=== PATIENT | female | born 1995 | race Hispanic/Latino ===

== ENCOUNTER 2023-09-10 10:51 | Inpatient (IN) | payer MEDICAID ==
[~2023-09-10] VITALS: Ht 157.5 cm; Wt 81.6 kg
[2023-09-10 12:52] LABS: APPEARANCE,URINE CLEAR (CLEAR); BILIRUBIN,URINE NEGATIVE (NEGATIVE); COLOR,URINE LIGHT-YELLOW (YELLOW); GLUCOSE, URINE (UA) NEGATIVE (NEGATIVE); KETONES,URINE NEGATIVE (NEGATIVE); LEUKOCYTE ESTERASE ,URINE NEGATIVE Leu/uL (NEGATIVE); NITRATE,URINE NEGATIVE (NEGATIVE); OCCULT BLOOD,URINE LARGE (NEGATIVE); PROTEIN,URINE 10 mg/dL (NEGATIVE); UROBILINOGEN,URINE 0.2 mg/dL (0.2-1.0)
[2023-09-10 12:58] LABS: AMPHET/METH SCREEN,URINE NEGATIVE (NEGATIVE); BARBITURATE SCREEN, URINE NEGATIVE (NEGATIVE); BENZODIAZEPINES SCREEN,URINE NEGATIVE (NEGATIVE); CANNABINOID SCREEN,URINE NEGATIVE (NEGATIVE); COCAINE SCREEN,URINE NEGATIVE (NEGATIVE); OPIATE SCREEN,URINE NEGATIVE (NEGATIVE); PHENCYCLIDINE SCREEN,URINE NEGATIVE (NEGATIVE)
[2023-09-10 13:00] LABS: ADD UA MICROSCOPIC YES
[2023-09-10] MEDS ORDERED: OXYTOCIN-LR 30 UNITS/500ML 500 ML IV SCH (13:00)
[2023-09-10 13:02] LABS: BACTERIA,URINE RARE /HPF (None Seen); MUCUS,URINE RARE LPF (None Seen); RBC,URINE TNTC /HPF (0-1); SQUAMOUS EPITHELIAL CELL,UR MOD /HPF (0-2)
[2023-09-10 13:03] LABS: HEMATOCRIT 39.7 % (36-48); MEAN CORPUSCULAR HEMOGLOBIN 29.3 pg (27.0-33.0); MEAN CORPUSCULAR HGB CONC 33.8 g/dL (32.0-36.0); MEAN CORPUSCULAR VOLUME 86.9 fL (79-99); RED BLOOD CELL COUNT(AUTO) 4.57 MIL/uL (4.00-5.50); RED CELL DISTRIBUTION WIDTH 12.9 % (11.0-15.5); WHITE BLOOD COUNT (AUTO) 9.9 K/uL (4.8-10.8)
[2023-09-10] MEDS: LACTATED RINGERS 1000ML 1,000 ML IV PRN ×2 (17:09→23:52)
[2023-09-10] MEDS ORDERED: DINOPROSTONE 10 MG VAGINAL SUPP EC ONE (19:00)
[2023-09-11] MEDS: LACTATED RINGERS 1000ML 1,000 ML IV PRN ×3 (07:34→14:36)
[2023-09-11] MEDS ORDERED: MEPERIDINE-PF 50 MG/ML SYG IVP PRN (09:00)
[2023-09-11] MEDS ORDERED: ROPIVACAINE 0.2% 100ML VIAL 100 ML EP SCH (09:00)
[2023-09-11] MEDS ORDERED: PROMETHAZINE HCL 25 MG/ML 1ML AMPULE IM PRN (09:00)
[2023-09-11] MEDS ORDERED: FENTANYL CITRATE PF 50 MCG/1 ML 2ML VIAL ONE (14:29)
[2023-09-11] MEDS ORDERED: AMPICILLIN 2GM+NS 100ML 100 ML IV ONE (23:15)
[2023-09-11] MEDS ORDERED: LIDOCAINE HCL 1% 20 ML VIAL ONE (23:16)
[2023-09-11] MEDS: AMPICILLIN 2GM+NS 100ML IV SCH (23:18)
[2023-09-12] VITALS (8 sets, daily range): BP systolic 112–134; BP diastolic 65–87; PULSE 54–96; RESP 16–18; TEMP 100
[2023-09-12] MEDS ORDERED: [UNRECOGNIZED DRUG - OTHER] IV SCH ×2
[2023-09-12] MEDS ORDERED: OXYTOCIN-LR 30 UNITS/500ML 500 ML IV SCH (00:30)
[2023-09-12] MEDS ORDERED: ACETAMINOPHEN WITH CODEINE 1 TAB TAB PO PRN (00:30)
[2023-09-12] MEDS ORDERED: MEASLES/MUMPS/RUBELLA VACCINE, LIVE 0.5 ML/VIAL SQ PRN (00:30)
[2023-09-12] MEDS ORDERED: ACETAMINOPHEN 325 MG TAB PO PRN (00:30)
[2023-09-12] MEDS ORDERED: LANOLIN 30GM OINTMENT TP PRN (00:30)
[2023-09-12] MEDS ORDERED: WITCH HAZEL 1 PAD TP PRN (00:30)
[2023-09-12] MEDS ORDERED: DIPH,PERTUSS(ACELL),TET VAC/PF 0.5 ML VIAL IM PRN (00:30)
[2023-09-12] MEDS ORDERED: BENZOCAINE/LANOLIN/ALOE VERA 60 ML AEROSOL TP PRN (00:30)
[2023-09-12] MEDS: IBUPROFEN 600 MG TABLET PO PRN (01:03)
[2023-09-12] MEDS ORDERED: PREN-154 PO (06:15)
[2023-09-12] MEDS: DOCUSATE SODIUM 100 MG CAP PO SCH ×2 (07:35→19:29)
[2023-09-12] MEDS: AMPICILLIN 2GM+NS 100ML IV SCH ×3 (07:35→23:42)
[2023-09-12] MEDS ORDERED: GENTAMICIN SULFATE IV SCH ×3 (08:00)
[2023-09-12] MEDS ORDERED: [UNRECOGNIZED DRUG - OTHER] IV SCH (08:00)
[2023-09-12] MEDS ORDERED: GENTAMICIN 80 MG/NS 100 ML PB 0 ML IV ONE (08:59)
[2023-09-12 10:59] LABS: HEMATOCRIT 32.6 % (36-48); MEAN CORPUSCULAR HEMOGLOBIN 29.7 pg (27.0-33.0); MEAN CORPUSCULAR HGB CONC 34.4 g/dL (32.0-36.0); MEAN CORPUSCULAR VOLUME 86.5 fL (79-99); RED BLOOD CELL COUNT(AUTO) 3.77 MIL/uL (4.00-5.50); WHITE BLOOD COUNT (AUTO) 16.9 K/uL (4.8-10.8)
[2023-09-12] MEDS: NS IV SCH ×2 (11:47→19:30)
[2023-09-12] MEDS: GENTAMICIN IV SCH ×2 (11:47→19:30)
[2023-09-12] MEDS: LACTATED RINGERS 1000ML 1,000 ML IV PRN (17:58)
[2023-09-13 03:29] VITALS: BP 154/88; PULSE 71; RESP 20
[2023-09-13] MEDS: GENTAMICIN IV SCH ×2 (04:02→11:25)
[2023-09-13] MEDS: NS IV SCH ×2 (04:02→11:25)
[2023-09-13] MEDS: IBUPROFEN 600 MG TABLET PO PRN (04:12)
[2023-09-13 06:40] LABS: MEAN CORPUSCULAR HGB CONC 33.9 g/dL (32.0-36.0); MEAN CORPUSCULAR VOLUME 85.6 fL (79-99); RED BLOOD CELL COUNT(AUTO) 3.62 MIL/uL (4.00-5.50); RED CELL DISTRIBUTION WIDTH 13.1 % (11.0-15.5); WHITE BLOOD COUNT (AUTO) 16.2 K/uL (4.8-10.8)
[2023-09-13 07:38] VITALS: BP 127/90; PULSE 78
[2023-09-13] MEDS: AMPICILLIN 2GM+NS 100ML IV SCH (07:46)
[2023-09-13] MEDS: DOCUSATE SODIUM 100 MG CAP PO SCH (07:47)
[2023-09-13 11:05] VITALS: BP 133/98; PULSE 90
[2023-09-13] MEDS ORDERED: FLU VACC QS2023-24(6MOS UP)/PF 60 MCG/0.5 ML IM ONE (11:30)
== END 2023-09-13 13:12 | disposition home or self-care (01) | DRG 560 ==
LOC: LDH 10:51 → OBSVTOIN 10:51 → WSH 09-12 02:11
PROVIDERS: ADMIT Obstetrics & Gynecology; ATTEND Obstetrics & Gynecology
PROC: 0KQM0ZZ Repair Perineum Muscle, Open Approach (ICD-10-PCS; 2023-09-11)
PROC: 10907ZC Drainage of Amniotic Fluid, Therapeutic from Products of Conception, Via Natural or Artificial Opening (ICD-10-PCS; 2023-09-11)
PROC: 3E033VJ Introduction of Other Hormone into Peripheral Vein, Percutaneous Approach (ICD-10-PCS; 2023-09-11)
PROC: 3E0P7VZ Introduction of Hormone into Female Reproductive, Via Natural or Artificial Opening (ICD-10-PCS; 2023-09-11)
PROC: 10E0XZZ Delivery of Products of Conception, External Approach (ICD-10-PCS; principal; 2023-09-11 19:25)
PROC: 3E02340 Introduction of Influenza Vaccine into Muscle, Percutaneous Approach (ICD-10-PCS; 2023-09-13)
PROC: 3E0R3BZ Introduction of Anesthetic Agent into Spinal Canal, Percutaneous Approach (ICD-10-PCS; 2023-09-13)
PROC: 00HU33Z Insertion of Infusion Device into Spinal Canal, Percutaneous Approach (ICD-10-PCS; 2023-09-13)
DX: O69.1XX0 Labor and delivery complicated by cord around neck, with compression, not applicable or unspecified (principal); Z37.0 Single live birth; O41.1230 Chorioamnionitis, third trimester, not applicable or unspecified; O99.344 Other mental disorders complicating childbirth; O75.2 Pyrexia during labor, not elsewhere classified; O76 Abnormality in fetal heart rate and rhythm complicating labor and delivery; O70.1 Second degree perineal laceration during delivery; Z3A.39 39 weeks gestation of pregnancy; Z23 Encounter for immunization
CPT/HCPCS: 36415; 76805; 76819; 80305; 81001; 85027; 86592; 86850; 86900; 86901; 87070; 87076; 87077; 87088; 87186; 87340; 88307; 90715; A4314; A4344; A4606; G0378; J0290; J1580; J2175; J2550; J2795; J3010; J7120; Q2035; A4649; Q2038